=== PATIENT | male | born 1985 ===

== ENCOUNTER 2017-09-07 09:10 | Emergency (ER) | payer SELFPAY ==
[~2017-09-07] VITALS: Ht 165.1 cm; Wt 82.1 kg
[2017-09-07 09:29] VITALS: BP 130/50
[2017-09-07] MEDS ORDERED: IBUPROFEN 200 MG TABLET ONE (09:57)
[2017-09-07] MEDS ORDERED: IBUPROFEN 200 MG TABLET PO ONE (10:00)
== END 2017-09-07 11:03 | disposition home or self-care (01) ==
LOC: ED 10:18
DX: S93.402A Sprain of unspecified ligament of left ankle, initial encounter (principal); X50.1XXA Overexertion from prolonged static or awkward postures, initial encounter; Y93.89 Activity, other specified; Y92.098 Other place in other non-institutional residence as the place of occurrence of the external cause; Y99.8 Other external cause status
CPT/HCPCS: 99284

== ENCOUNTER 2017-09-13 13:07 | Emergency (ER) | payer SELFPAY ==
[~2017-09-13] VITALS: Ht 165.1 cm; Wt 81.6 kg
[2017-09-13 15:43] LABS: BASOPHILS # (AUTO) 0.03 x10^3/uL (0-0.1); BASOPHILS % (AUTO) 0 % (0-1); EOSINOPHILS % (AUTO) 1 % (1-7); LYMPHOCYTES # (AUTO) 1.52 x10^3/uL (1-3.4); LYMPHOCYTES % (AUTO) 18 % (22-44); MD NO; MEAN CORPUSCULAR HEMOGLOBIN 25.3 pg (27.5-34.5); MEAN PLATELET VOLUME 9.1 fL (7.4-10.4); MONOCYTES # (AUTO) 0.78 x10^3/uL (0.2-0.8); MONOCYTES % (AUTO) 9 % (2-9); NEUTROPHILS # (AUTO) 6.25 x10^3/uL (1.8-6.8); NEUTROPHILS % (AUTO) 72 % (42-75); PLATELET COUNT 320 x10^3/uL (130-400); RED BLOOD COUNT 5.19 x10^6/uL (4.38-5.82); RED CELL DISTRIBUTION WIDTH 15.6 % (9.4-14.8)
[2017-09-13 15:51] LABS: ALBUMIN 3.6 g/dL (3.4-5.0); ANION GAP 5 mmol/L (5-15); CALCIUM 8.9 mg/dL (8.5-10.1); CHLORIDE 108 mmol/L (98-107)
[2017-09-13 15:55] LABS: ALANINE AMINOTRANSFERASE 53 U/L (12-78); ALKALINE PHOSPHATASE 124 U/L (45-117); BILIRUBIN,TOTAL 0.3 mg/dL (0.2-1.0); CREATININE 0.78 mg/dL (0.7-1.3); TOTAL PROTEIN 8.2 g/dL (6.4-8.2)
[2017-09-13 16:12] LABS: MICROSCOPIC INDICATED
[2017-09-13 16:26] LABS: CULTURE INDICATED? NO
[2017-09-13] MEDS ORDERED: SODIUM CHLORIDE FLUSH 10ML SYR IVF ONE (16:30)
[2017-09-13] MEDS ORDERED: OMNIPAQUE 350 MG/ML, 100ML BOTTLE ONE (16:36)
[2017-09-13 17:13] VITALS: BP 102/66
== END 2017-09-13 18:04 | disposition home or self-care (01) ==
LOC: ED 18:00
DX: K52.9 Noninfective gastroenteritis and colitis, unspecified (principal); R42 Dizziness and giddiness
CPT/HCPCS: 36415; 74177; 80053; 81001; 83690; 85025; 87081; 87880; 99285; Q9967

== ENCOUNTER 2018-01-17 12:08 | Emergency (ER) | payer SELFPAY ==
[~2018-01-17] VITALS: Ht 162.6 cm; Wt 85.3 kg
[2018-01-17 13:03] LABS: BASOPHILS # (AUTO) 0.03 x10^3/uL (0-0.1); BASOPHILS % (AUTO) 1 % (0-1); EOSINOPHILS # (AUTO) 0.03 x10^3/uL (0-0.4); EOSINOPHILS % (AUTO) 1 % (1-7); LYMPHOCYTES # (AUTO) 1.16 x10^3/uL (1-3.4); LYMPHOCYTES % (AUTO) 17 % (22-44); MD NO; MEAN CORPUSCULAR HGB CONC 32.4 g/dL (33.2-36.2); MEAN CORPUSCULAR VOLUME 80.2 fL (81-97); MEAN PLATELET VOLUME 8.9 fL (7.4-10.4); MONOCYTES # (AUTO) 0.58 x10^3/uL (0.2-0.8); MONOCYTES % (AUTO) 8 % (2-9); NEUTROPHILS # (AUTO) 5.16 x10^3/uL (1.8-6.8); NEUTROPHILS % (AUTO) 74 % (42-75); PLATELET COUNT 340 x10^3/uL (130-400); RED BLOOD COUNT 5.24 x10^6/uL (4.38-5.82); RED CELL DISTRIBUTION WIDTH 15.1 % (9.4-14.8)
[2018-01-17 13:15] LABS: ALANINE AMINOTRANSFERASE 31 U/L (12-78); ALBUMIN 3.7 g/dL (3.4-5.0); ANION GAP 7 mmol/L (5-15); CALCIUM 8.4 mg/dL (8.5-10.1); CHLORIDE 109 mmol/L (98-107); CREATININE 0.84 mg/dL (0.7-1.3)
[2018-01-17 13:17] LABS: ALKALINE PHOSPHATASE 107 U/L (45-117); BILIRUBIN,TOTAL 0.3 mg/dL (0.2-1.0); TOTAL PROTEIN 8.2 g/dL (6.4-8.2)
[2018-01-17 14:44] VITALS: BP 132/78
== END 2018-01-17 15:17 | disposition home or self-care (01) ==
LOC: ED 14:50
DX: J00 Acute nasopharyngitis [common cold] (principal); B34.9 Viral infection, unspecified
CPT/HCPCS: 36415; 71045; 80053; 85025; 99284

== ENCOUNTER 2018-01-26 13:38 | Emergency (ER) | payer SELFPAY ==
[~2018-01-26] VITALS: Ht 162.6 cm; Wt 85.0 kg
[2018-01-26 13:48] VITALS: BP 119/77
== END 2018-01-26 14:48 | disposition home or self-care (01) ==
LOC: ED 14:41
DX: J06.9 Acute upper respiratory infection, unspecified (principal)
CPT/HCPCS: 99283

== ENCOUNTER 2018-07-13 13:11 | Emergency (ER) | payer BC ==
[~2018-07-13] VITALS: Ht 162.6 cm; Wt 84.9 kg
[2018-07-13 13:57] VITALS: BP 130/90
[2018-07-13] MEDS ORDERED: PROMETHAZINE 25 MG/ML, 1ML ONE (14:29)
[2018-07-13] MEDS ORDERED: KETOROLAC 30 MG/1 ML ONE (14:29)
[2018-07-13] MEDS ORDERED: PROMETHAZINE 25 MG/ML, 1ML IM ONE (14:30)
[2018-07-13] MEDS ORDERED: KETOROLAC 30 MG/1 ML IM ONE (14:30)
[2018-07-13 14:36] LABS: BASOPHILS # (AUTO) 0.04 x10^3/uL (0-0.1); BASOPHILS % (AUTO) 0 % (0-1); EOSINOPHILS # (AUTO) 0.06 x10^3/uL (0-0.4); EOSINOPHILS % (AUTO) 1 % (1-7); LYMPHOCYTES # (AUTO) 1.58 x10^3/uL (1-3.4); LYMPHOCYTES % (AUTO) 16 % (22-44); MD NO; MEAN CORPUSCULAR HEMOGLOBIN 26.1 pg (27.5-34.5); MEAN CORPUSCULAR HGB CONC 31.8 g/dL (33.2-36.2); MEAN CORPUSCULAR VOLUME 81.9 fL (81-97); MEAN PLATELET VOLUME 8.7 fL (7.4-10.4); MONOCYTES # (AUTO) 0.72 x10^3/uL (0.2-0.8); MONOCYTES % (AUTO) 7 % (2-9); NEUTROPHILS # (AUTO) 7.64 x10^3/uL (1.8-6.8); NEUTROPHILS % (AUTO) 76 % (42-75); PLATELET COUNT 341 x10^3/uL (130-400); RED BLOOD COUNT 5.38 x10^6/uL (4.38-5.82); RED CELL DISTRIBUTION WIDTH 14.9 % (9.4-14.8)
[2018-07-13 14:45] LABS: ALBUMIN 3.8 g/dL (3.4-5.0); ANION GAP 7 mmol/L (5-15); CALCIUM 8.8 mg/dL (8.5-10.1); CHLORIDE 108 mmol/L (98-107); CREATININE 0.82 mg/dL (0.7-1.3)
--- NOTE | 2018-07-13 15:48 | NUR ---
PT REPORTS IMPROVEMENT IN PAIN. DC EDUCATION PROVIDED, PT DEMONSTRATES UNDERSTANDING. PT AMBULATED STEADILY TO DC WITH RN. Addendum: 07/13/18 at 1549 by [email or web address] PT TO AMBULATE HOME, "ITS JUST AROUND THE CORNER". PT DRESSED APPROPRIATELY FOR WEATHER
== END 2018-07-13 15:50 | disposition home or self-care (01) ==
LOC: ED 15:09
DX: J01.00 Acute maxillary sinusitis, unspecified (principal); G43.C0 Periodic headache syndromes in child or adult, not intractable; J45.909 Unspecified asthma, uncomplicated
CPT/HCPCS: 36415; 71045; 80048; 82040; 85025; 96372; 99284; J1885; J2550

== ENCOUNTER 2018-08-04 10:50 | Emergency (ER) | payer BC ==
[~2018-08-04] VITALS: Ht 152.4 cm; Wt 86.0 kg
[2018-08-04 11:04] VITALS: BP 122/79
[2018-08-04] MEDS ORDERED: IBUPROFEN 600 MG TABLET PO ONE (11:30)
[2018-08-04] MEDS ORDERED: IBUPROFEN 200 MG TABLET ONE (12:00)
== END 2018-08-04 12:35 ==
LOC: ED 12:29
DX: M25.531 Pain in right wrist (principal); M54.41 Lumbago with sciatica, right side; M25.561 Pain in right knee; M25.551 Pain in right hip
CPT/HCPCS: 29125; 72110; 99283

== ENCOUNTER 2020-10-25 13:04 | Emergency (ER) | payer OTHER ==
[~2020-10-25] VITALS: Ht 157.5 cm; Wt 91.2 kg
[2020-10-25] MEDS ORDERED: ONDANSETRON 2MG/ML, 2ML IVPush ONE (13:30)
[2020-10-25] MEDS ORDERED: SODIUM CHLORIDE FLUSH 10ML SYR IVF ONE (13:30)
[2020-10-25] MEDS ORDERED: SODIUM CHLORIDE 0.9% 1,000ML IVBOLUS ONE (13:30)
[2020-10-25 14:21] LABS: BASOPHILS % (AUTO) 1 % (0-1); EOSINOPHILS % (AUTO) 1 % (1-7); LYMPHOCYTES % (AUTO) 16 % (22-44); MEAN CORPUSCULAR HEMOGLOBIN 29.1 pg (27.5-34.5); MEAN CORPUSCULAR HGB CONC 33.5 g/dL (33.2-36.2); MEAN PLATELET VOLUME 8.3 fL (7.4-10.4); MONOCYTES % (AUTO) 9 % (2-9); NEUTROPHILS % (AUTO) 74 % (42-75); PLATELET COUNT 329 x10^3/uL (130-400); RED BLOOD COUNT 5.02 x10^6/uL (4.38-5.82); RED CELL DISTRIBUTION WIDTH 13.9 % (9.4-14.8)
[2020-10-25 14:31] LABS: ALANINE AMINOTRANSFERASE 43 U/L (12-78); ALBUMIN 3.6 g/dL (3.4-5.0); ANION GAP 5 mmol/L (5-15); CALCIUM 8.8 mg/dL (8.5-10.1); CHLORIDE 105 mmol/L (98-107); CREATININE 0.65 mg/dL (0.7-1.3)
[2020-10-25 14:34] LABS: ALKALINE PHOSPHATASE 116 U/L (45-117); BILIRUBIN,TOTAL 0.5 mg/dL (0.2-1.0); TOTAL PROTEIN 8.4 g/dL (6.4-8.2)
--- NOTE | 2020-10-25 14:54 | NUR ---
PSYCHIATRIST; PT TO ROOM FROM [facility]AC[facility] JURADO
--- NOTE | 2020-10-25 14:55 | NUR ---
PATIENT WALKED BACK FROM [facility] WITH CHIEF C/O MID ABD PAIN X5 DAYS. DENIES FEVER, REPORT DIARRHEA BUT DENIES N/V. DENIES PAIN WITH URINATION. CONNECTED TO MONITOR, VSS, CALL LIGHT WITHIN REACH.
[2020-10-25] MEDS ORDERED: ONDANSETRON 2MG/ML, 2ML ONE (15:01)
--- NOTE | 2020-10-25 15:08 | NUR ---
ERPA AT BEDSIDE, PER ERPA IV AND ORDERED MEDICATIONS CAN BE HELD AT THIS TIME.
[2020-10-25 15:22] VITALS: BP 118/70
--- NOTE | 2020-10-25 15:22 | NUR ---
COVID SWAB COLLECTED BY WINIFRED AND WALKED TO LAB.
--- NOTE | 2020-10-25 15:41 | NUR ---
Per ERPA, stool cultures not needed for patient. Patient given discharge instructions and prescriptions and they have confirmed that they understand the instructions. Patient ambulatory with steady gait. NAD, all questions answered appropriately, denies additional needs at this time. No personal belongings left in room after discharge.
== END 2020-10-25 15:42 | disposition home or self-care (01) ==
LOC: ED 15:10
DX: A08.4 Viral intestinal infection, unspecified (principal); Z20.822 Contact with and (suspected) exposure to COVID-19; R00.0 Tachycardia, unspecified
CPT/HCPCS: 36415; 80053; 83690; 85025; 99283; U0003; U0005

== ENCOUNTER 2020-11-04 21:58 | Emergency (ER) | payer SELFPAY ==
[~2020-11-04] VITALS: Ht 165.1 cm; Wt 92.3 kg
--- NOTE | 2020-11-05 03:19 | NUR ---
PT AMBULATORY TO ROOM FROM LOBBY.
--- NOTE | 2020-11-05 03:22 | NUR ---
PT PRESENTS TO ED C/O "COUGHING UP BLOOD AFTER COUGHING A LOT" X3 MONTHS. INTERMITTENT SOB. PT SITTING UPRIGHT ON GURNEY, NADN, VSS. PT DENIES ANY NEEDS AT THIS TIME. CALL LIGHT AND PERSONAL BELONGINGS WITHIN REACH. ERP AT BEDSIDE FOR RE-EVAL.
[2020-11-05 04:18] VITALS: BP 155/76
--- NOTE | 2020-11-05 04:18 | NUR ---
Patient given discharge instructions and they have confirmed that they understand the instructions. Patient ambulatory with steady gait. NAD, all questions answered appropriately, denies additional needs at this time. No personal belongings left in room after discharge.
== END 2020-11-05 04:21 | disposition home or self-care (01) ==
LOC: ED 22:00
DX: B34.9 Viral infection, unspecified (principal); R05 Cough
CPT/HCPCS: 71045; 93005; 99283